=== PATIENT | female | born 1940 | race Caucasian/White ===

== ENCOUNTER 2024-05-29 18:51 | Emergency (ER) | payer SELFPAY ==
[2024-05-29 18:52] VITALS: BMI 28.9
[2024-05-29 18:54] VITALS: BP 158/66
[2024-05-29 20:55] VITALS: BP 145/68
[2024-05-29 21:00] VITALS: BP 127/65
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
[2024-05-29 22:22] VITALS: BP 137/65
== END 2024-05-29 22:33 | disposition home or self-care (01) ==
LOC: EMR 18:51
PROVIDERS: EMERGENCY PHYSICIAN Emergency Medicine; FAMILY PHYSICIAN Internal Medicine
DX: R07.81 Pleurodynia (principal); V43.62XA Car passenger injured in collision with other type car in traffic accident, initial encounter; R03.0 Elevated blood-pressure reading, without diagnosis of hypertension; F02.80 Dementia in other diseases classified elsewhere, unspecified severity, without behavioral disturbance, psychotic disturbance, mood disturbance, and anxiety; G30.9 Alzheimer's disease, unspecified
CPT/HCPCS: 99284; 70450; 71101; 72125

== ENCOUNTER 2025-04-10 08:43 | Inpatient (IN) | payer OTHER, SELFPAY ==
[2025-04-05 22:01] VITALS: BP 153/84
[2025-04-05 22:29] LABS: Hematocrit 36.6 % (37.0-47.0); Hemoglobin 11.9 g/dL (12.0-16.0); Mean Corp Hgb Conc. 32.5 g/dL (33.0-37.0); Mean Corpuscular Volume 88.6 fL (81.0-99.0); Nucleated Red Blood Cells % 0 %; Platelet Count 252 10^3/uL (130-400); Red Cell Dist. Width 13.4 % (11.5-14.5)
[2025-04-05 22:54] LABS: ALT (SGPT) 15 U/L (0-35); AST (SGOT) 23 U/L (14-36); Albumin 4.6 g/dl (3.5-5.0); Alkaline Phosphatase 162 U/L (38-126); Blood Urea Nitrogen 11 mg/dl (7-17); Calcium 8.8 mg/dl (8.4-10.2); Carbon Dioxide 24 mmol/L (22-30); Chloride 104 mmol/L (98-107); Glucose 125 mg/dl (70-99); Potassium 3.9 mmol/L (3.5-5.1); Sodium 137 mmol/L (135-145); Total Protein 7.9 g/dl (6.3-8.2); eGFR > 60.00
[2025-04-05 22:57] VITALS: BP 147/76
[2025-04-05 23:00] VITALS: BP 132/61
[2025-04-05] MEDS: DUONEB 9 ML INH (23:08)
[2025-04-05] MEDS: SOLU-MEDROL PF 125 MG IV (23:09)
[2025-04-05 23:45] LABS: COVID-19 Antigen Negative (Negative)
--- NOTE | 2025-04-05 23:57 | ED.GENMED ---
History of Present Illness
General
Chief Complaint: Cough
Time Seen by Provider: 04/05/25 22:55
History of Present Illness
History of Present Illness:
84-year-old female with history of hypertension, hyperlipidemia, dementia presenting to the emergency department for cough and shortness of breath. Patient arrives with daughter. Daughter notes that patient has been having coughing issues for
several months. She has been following with her doctor with unremarkable workup regarding imaging. In the past 2 weeks she has noticed a decline with increased coughing, difficulty breathing, poor appetite. Tonight the cough became severe and
patient was short of breath. Patient denies chest pain. Denies any smoking history. Denies any history of blood clots. Patient noted to be febrile on arrival, denies any known fever at home or known sick contacts. Cough is productive. Denies
additional acute medical complaints
Past History
Past History
ED Past Medical History: CAD and Other (Dementia)
ED Past Surgical History: Cardiac and Orthopedic
Social History
Tobacco: Non-smoker
Alcohol: None
Drug: None
Living: with family
Phy Exam
Physical Exam
Physical Exam:
General: Well-appearing, no clinical signs of dehydration, nontoxic and in no acute distress
HEENT: protecting airway
Neck: appears supple
CV: Normal heart rate, regular rhythm
Resp: Diminished air room bilaterally with wheezing diffusely. Mild increased work of breathing with active cough
Abd: no distension
Extremities: No deformities, no swelling
Neuro: alert, disoriented
: deferred
Rectal: deferred
Psych: Normal affect
Skin: Intact
Sepsis
Sepsis Screening
Sepsis Assessment: Sepsis Ruled Out
Sepsis Screen
Sepsis Screen: Sepsis Ruled Out
Date: 04/06/25
Time: 02:49
Course
Orders/Labs/Results
Orders:
Orders
04/05/25 22:04
Electrocardiogram (*1) Urgent
Reason for Study: Other
Other Reason for Exam: Possible Sepsis
IV Insert/Care/Rem.- Treatment PRN
Urinalysis Reflex To Culture Urgent
Date Specimen was Collected: 04/05/25
Time Specimen was Collected: 22:05
04/05/25 22:05
EKG- Treatment ONCE
04/05/25 22:20
Complete Blood Count/With Diff Urgent
Comprehensive Metabolic Panel Urgent
Lactic Acid Q4H
Comment: ON ICE, CANCEL 2ND ORDER IF FIRST LACTIC ACID LEVEL <2
Blood Culture Q20M
[facility] Source: Blood/Venous
Specimen Description:
Comment: Urgent from separate sites. If patient screens positive for possible sepsis
Blood Culture Q20M
[facility] Source: Blood/Venous
Specimen Description:
Comment: Urgent from separate sites. If patient screens positive for possible sepsis
04/05/25 23:03
Ipratropium/Albuterol Sulfate [Duoneb] 9 ml INH R NOW STA
MethylPREDNISolone PF [Solu-Medrol Pf] 125 mg IV NOW STA
04/05/25 23:16
COVID-19 Antigen Urgent
Source: Nasal Swab
Influenza A+B Rapid Molecular Urgent
[facility]IDA Source: Nasal Swab
Specimen Description:
04/06/25 00:05
CR Chest - 2 Views Urgent
Reason For Exam: cough/SOB
04/06/25 00:41
Albuterol Nebs [Ventolin Nebules] 2.5 mg INH R NOW STA
04/06/25 01:25
Admit/Transfer Patient As Directed
Co-Sign Provider:
Level of Care: Observation services
Assign to:: Medical/Surgical
Physician / Group: Ignacio
Diagnosis: Asthmatic Bronchitis
PRN Pain Medication Management As Directed
May give lesser potent ordered pain med per pt: Yes
preference::
Protocol:: Medication orders for pain may be administered in a
manner that supports deferring to patient preference
when the pt is:
- Requesting an ordered lesser potent pain medication.
Least to most potent pain medications are defined
as: acetaminophen < NSAID < tramadol < opioids
(morphine, oxycodone, hydromorphone).
- Requesting a lesser dose of the same medication IF
ORDERED.
- Requesting a less intrusive route of administration
if both routes are prescribed by the provider (PO <
IV).
04/06/25 01:26
Code Status As Directed
Resuscitation Status: Full Code
04/06/25 02:35
Acetaminophen [Tylenol] 650 mg PO Q4HPRN PRN
Albuterol Nebs [Ventolin Nebules] 2.5 mg INH R Q4HPRN PRN
04/06/25 02:35
Activity As Directed
Activity Level: Ambulate
With Assistance
I/O [Intake/ Output] As Directed
Frequency: Per unit guidelines
Vital Signs As Directed
Frequency: Per unit guidelines
Weight As Directed
Frequency: Daily
Chest PT [Rx Chest Pt] [RESP] Routine
Special Instructions: BID
Oxygen Therapy [O2 Therapy] [RESP] Routine
Titrate/Wean O2 to maintain O2 sat greater than (%): 94
PT Consult [Pt Eval And Treat] Routine
Activity Level: Ambulate
With Assistance
DX Deep Vein Thrombosis Video Routine
04/06/25 Breakfast
Regular
Basic Metabolic Panel IN AM
Complete Blood Count/No Diff IN AM
04/06/25 08:00
Aspirin Low Dose EC [Aspir Low (Enteric Coated)] 81 mg PO DAILY
Atorvastatin [Lipitor] 20 mg PO DAILY
Guaifenesin [Mucinex] 600 mg PO Q12
Heparin 5,000 units SC Q12
Ipratropium/Albuterol Sulfate [Duoneb] 3 ml INH R TID
Memantine HCl [Namenda] 10 mg PO BID
Metoprolol Xl [Toprol Xl] 25 mg PO DAILY
Prednisone [Deltasone] 40 mg PO DAILY
Sertraline HCl [Zoloft] 50 mg PO DAILY
04/06/25 22:00
Donepezil [Aricept] 5 mg PO HS
Abnormal Lab Results
04/05/25
22:20
RBC 4.13 L 10^6/uL
(4.20-5.40)
Hgb 11.9 L g/dL
(12.0-16.0)
Hct 36.6 L %
(37.0-47.0)
MCHC 32.5 L g/dL
(33.0-37.0)
Absolute Monos (auto) 0.7 H 10^3/uL
(0.1-0.6)
Lymphocytes % 16.0 L %
(20.5-51.1)
Glucose 125 H mg/dl
(70-99)
Alkaline Phosphatase 162 H U/L
(38-126)
04/05/25 22:20
04/05/25 22:20
Vital Signs
Initial and Last Documented VS:
Initial Vital Signs
Temp Pulse Resp BP Pulse Ox
100 F 86 25 153/84 94
04/05/25 22:01 04/05/25 22:01 04/05/25 22:01 04/05/25 22:01 04/05/25 22:01
Last Documented Vital Signs
Temp Pulse Resp BP Pulse Ox
100 F 90 21 106/53 98
04/05/25 22:01 04/06/25 00:15 04/06/25 00:15 04/06/25 01:14 04/06/25 00:28
MDM/Problems Addressed
MDM/Problems Addressed:
84-year-old female with history of hypertension, hyperlipidemia, dementia presenting for cough and shortness of breath. Vital signs significant for mild hypertension and fever.
On exam, patient in mild respiratory distress with increased work of breathing, diffuse expiratory wheezing. Patient also febrile. Concern for pneumonia or viral syndrome such as COVID or flu. Given diffuse wheezing, will start on DuoNebs and
steroids. Will plan for laboratory analysis and chest x-ray imaging.
00:45 - Chest x-ray without obvious sign of infiltrate. COVID and flu are negative. Slight increase in aeration of lungs after treatments, however remains rhonchorous with wheezing. Will air tank assembler additional treatment. Ultimately feel patient
warrants admission for concern of acute bronchitis with possible developing pneumonia. Patient and daughter in agreement with plan
*Pulse Oximetry
SaO2: 95
Oxygen Mode of Delivery: Room air
Patient hypoxic: no
*Critical Care Note
Total Time (30-74mins, 75-104mins- exclusive of procedures): Not Applicable
ED Attending Note
-
Portions of this chart may have been created with voice recognition software.� Occasional wrong word or��sound alike� substitutions may have occurred due to the inherent limitations of voice recognition software.
Discharge Plan
Departure
Patient Disposition: Admit
Date of Disposition: 04/06/25
Time of Disposition: 00:50
Presentation/result/management discussed w/ accepting MD/DO: Hospitalist
Patient with high blood pressure during this ER visit?: No
Condition: Fair
Discharge Problem:
Acute bronchitis
Interventions
Interventions:
*Risk Screen - Suicide Last Done: 04/05/25 22:01
*General Assessment Last Done: 04/05/25 22:01
*Neglect/Abuse Screening Last Done: 04/05/25 22:01
*ED- Fall Risk Assessment Last Done: 04/05/25 23:03
*ED COVID-19 Vaccine History Last Done: 04/05/25 23:03
*ED Influenza Vaccine History Last Done: 04/05/25 22:01
ED- Pulmonary Assessment Last Done: 04/05/25 23:38
[2025-04-06] VITALS (7 sets, daily range): BP systolic 106–127; BP diastolic 50–68; PULSE 83; O2SAT 95; BMI 27.2
[2025-04-06] MEDS: VENTOLIN NEBULES 2.5 MG INH ×2 (00:48→21:57)
--- NOTE | 2025-04-06 01:28 | HPS.HSE ---
Family Physician
-
Family Physician: Ector Carney
Chief Complaint
-
Cough / SOB
History of Present Illness
Patient is an 84y F with PMH significant for hypertension and dementia who presents to ED complaining of cough and SOB. History obtained from discussion with ED staff / review of record. Patient brought to ED for evaluation of cough and SOB.
Daughter stated that cough present x months - but much worse over the past few days. Today the patient had severe paroxysms of cough and appeared short of breath and was brought to the ED for further evaluation.
At the time of my examination patient is resting comfortably. She is pleasantly demented and unable to contribute overmuch to this history. Daughter is no longer present.
Medical History
Past Medical History
Past Medical History: Reports Other
Additional Past Medical History:
Hypertension
Senile Dementia
Past Surgical History: Reports Other
Additional Past Surgical History:
None Known
Social History
Tobacco: Non-smoker
Alcohol: None
Personal: Other (Retired ED RN)
Family History
Family History: Not pertinent
Allergies / Home Medications
Allergies reflects when Allergies were last updated in [facility].
Home Medications with original date entered in [facility]
Allergy/Medication List:
Allergies
Allergy/AdvReac Type Severity Reaction Status Date / Time
oseltamivir (From Tamiflu) Allergy Mild Rash Verified 04/05/25 23:01
Tetracyclines Allergy Unknown Unknown Verified 04/05/25 23:01
Home Medications
aspirin 81 mg capsule 81 mg PO DAILY 04/05/25
atorvastatin 20 mg tablet 20 mg PO DAILY 04/05/25
donepezil 5 mg tablet 5 mg PO HS 04/05/25
memantine 10 mg tablet 10 mg PO BID 04/05/25
metoprolol succinate 25 mg tablet,extended release 24 hr 25 mg PO DAILY 04/05/25
pantoprazole 20 mg tablet,delayed release 20 mg PO DAILY 04/05/25
sertraline 50 mg tablet 50 mg PO DAILY 04/05/25
Review of Systems
-
Unable to obtain full review of systems at this time due to: Dementia
History Source: Patient
A 12 point ROS was completed and negative except as noted: Yes
Constitutional: Reports Fatigue; Denies Fever or Chills
EENT: Denies Sore Throat
Respiratory: Reports Cough and Trouble Breathing
Cardiac: Denies Chest Pain or Palpitations
Abdomen/GI: Denies Abdominal Pain, Nausea, Vomiting or Diarrhea
: Denies Dysuria or Frequency
Musculoskeletal: Denies Joint Pain or Edema
Neurological: Denies Dizzy or Headache
Physical Exam
Vital Signs
Vital Signs
Temp Pulse Resp BP Pulse Ox
100 F 90 21 116/55 99
04/05/25 22:01 04/06/25 00:15 04/06/25 00:15 04/06/25 00:00 04/06/25 00:15
Physical Exam
General: Other (84y F in no acute distress.)
HEENT: Other (Dry MM. Neck supple.)
Respiratory: Other (Scattered coarse breath sounds with expiratory squeaks / wheezes throughout. )
Cardiac: S1/S2 and Regular Rhythm; No Murmur
GI: Soft, Non Tender, Non Distended and Normal Bowel Sounds
Musculoskeletal: No Clubbing, No Cyanosis and No Edema
Neuro: Awake and Alert; No Oriented
Laboratory Results
-
04/05/25 22:20
04/05/25 22:20
Laboratory Results
Lactic Acid Cancelled 04/06/25 02:15
Total Bilirubin 0.7 mg/dl (0.2-1.3) 04/05/25 22:20
AST 23 U/L (14-36) 04/05/25 22:20
ALT 15 U/L (0-35) 04/05/25 22:20
Alkaline Phosphatase 162 U/L (38-126) H 04/05/25 22:20
Impression/Plan
-
A/P: Patient is an 84y F with PMH significant for hypertension and dementia who presents to ED for evaluation of cough and SOB.
Asthmatic Bronchitis
- Observe overnight for further evaluation and treatment.
- Cough / dyspnea at home with abnormal breath sounds on exam.
- Other work-up is unimpressive with normal CXR, temperature, WBC, oxygenation, etc.
- COVID / influenza negative in the ED.
- Observe off of abx.
- Mucolytics, nebs, PO steroids with rapid taper.
- Follow for clinical improvement.
Benign Hypertension
- Stable. Continue metoprolol.
Senile Dementia
Depression
- Stable. Continue outpatient med regimen without changes.
DVT Prophylaxis: Subcut Heparin
Code Status: Full
--- NOTE | 2025-04-06 05:06 | PTCARENOTE ---
Patient received from ED via stretcher and was pulled to bed by staff. She was oriented to room and surroundings but has hx dementia. Bed alarm in place. She denies CP, SOB. Coarse breath sounds throughout with fine anterior wheezes Sat 94% on
room air. Ax2 to BSC. Specimen to lab for UA. See nursing assessment for further physical findings.
[2025-04-06 05:47] LABS: Urine Character Clear (Clear)
[2025-04-06 06:00] LABS: Urine Red Blood Cell 0-2 /HPF (0-2); Urine Squamous Cell 0-2 /LPF (Few); Urine White Cell 0-2 /HPF (0-5)
[2025-04-06] MEDS: DUONEB 3 ML INH (07:21)
--- NOTE | 2025-04-06 08:16 | W.PN.HOSP.TC ---
Today's Communication/Plan
-
see A/P
Assessment / Plan
Assessment / Plan
HPI: 84 yo F with PMH significant for hypertension and dementia who presented to ED complaining of cough and SOB.
History obtained from discussion with ED staff / review of record. Patient brought to ED for evaluation of cough and SOB. Daughter stated that cough present x months - but much worse over the past few days. On DOA, the patient had severe paroxysms
of cough and appeared short of breath and was brought to the ED for further evaluation.
Patient was resting comfortably at the time of exam. She is pleasantly demented and unable to contribute overmuch to this history.
Daughter was no longer present.
A/P:
# Suspect mild acute viral URI vs Asthmatic Bronchitis
Cough / dyspnea at home with abnormal breath sounds on exam.
Pulse Ox > 90% on RA, VSS
COVID/Flu negative
Follow CXR formal report, but appears normal
Check procal, pro-BNP for completeness sake.
Observe off of abx for now
Mucolytics, nebs, PO prednisone 40 mg x5 days
Add Cepacol today for sore throat (her main complaint)
Follow for clinical improvement.
# Benign Hypertension, Stable.
Continue metoprolol.
# Senile Dementia
# Depression
Stable. Continue outpatient med regimen without changes.
DVT Prophylaxis: Lovenox SQ
Code Status: Full
PT eval
DW RN
updated daughter on the phone
Anticipated Discharge: 24 - 48 hours
Subjective/Interval History
-
Date of Service: April 06, 2025
Objective Data
-
Labs:
Laboratory Results
04/05/25 04/06/25
22:20 07:55
WBC 8.2 Pending
Hgb 11.9 L Pending
Hct 36.6 L Pending
Plt Count 252 Pending
Sodium 137 Pending
Potassium 3.9 Pending
Chloride 104 Pending
Carbon Dioxide 24 Pending
BUN 11 Pending
Creatinine 0.9 Pending
Glucose 125 H Pending
Calcium 8.8 Pending
Total Bilirubin 0.7
AST 23
ALT 15
Alkaline Phosphatase 162 H
Vital Signs:
Vital Signs
Temp Pulse Resp BP Pulse Ox
36.9 C 78 16 127/68 94
04/06/25 02:49 04/06/25 07:26 04/06/25 07:26 04/06/25 02:49 04/06/25 07:26
I&O
04/05/25 04/06/25 04/07/25
06:59 06:59 06:59
Output Total 1100 / 1100
Balance -1100 / -1100
Review of Systems
-
History Source: Patient
EENT: Reports Other (sore throat)
Respiratory: Reports Cough (mild and intermittent)
Physical Exam
-
General: Well Developed, Well Nourished, No Apparent Distress, Comfortable and Conversant; Negative Respiratory Distress
HEENT: Normocephalic, Atraumatic, Nose Appears Normal and Ears Appear Normal; Negative Oxygen
Respiratory: Clear to Auscultation and Non Labored Respirations; Negative Wheezes, Crackles or Accessory Resp Muscle Use
Cardiac: Regular Rhythm and S1/S2
GI: Soft, Nontender, Nondistended and Normal Bowel Sounds
Skin: Warm and Dry
Neuro: Awake and Alert
Psych: Calm
Data Reviewed
-
Labs: Labs Reviewed by me
[2025-04-06 08:37] LABS: Hematocrit 32.0 % (37.0-47.0); Hemoglobin 10.7 g/dL (12.0-16.0); Mean Corp Hgb Conc. 33.4 g/dL (33.0-37.0); Mean Corpuscular Volume 87.4 fL (81.0-99.0); Platelet Count 200 10^3/uL (130-400); Red Cell Dist. Width 13.3 % (11.5-14.5)
[2025-04-06 09:08] LABS: Blood Urea Nitrogen 10 mg/dl (7-17); Calcium 9.1 mg/dl (8.4-10.2); Carbon Dioxide 20 mmol/L (22-30); Chloride 107 mmol/L (98-107); Estimated Creatinine Clearance 55 ml/min; Glucose 190 mg/dl (70-99); Potassium 3.7 mmol/L (3.5-5.1); Sodium 139 mmol/L (135-145); eGFR > 60.00
[2025-04-06] MEDS: ANESTHETIC LOZENGE 1 LOZENGE PO ×3 (09:30→21:18)
[2025-04-06] MEDS: ASPIR LOW (ENTERIC COATED) 81 MG PO (09:30)
[2025-04-06] MEDS: MUCINEX 600 MG PO ×2 (09:30→20:18)
[2025-04-06] MEDS: ZOLOFT 50 MG PO (09:30)
[2025-04-06] MEDS: TOPROL XL 25 MG PO (09:31)
[2025-04-06] MEDS: LIPITOR 20 MG PO (09:31)
[2025-04-06] MEDS: NAMENDA 10 MG PO ×2 (09:31→20:18)
[2025-04-06] MEDS: DELTASONE 40 MG PO (09:31)
[2025-04-06 09:46] LABS: Procalcitonin < 0.05 ng/ml (0.0-0.25)
--- NOTE | 2025-04-06 15:39 | CM ---
Initial assessment completed w/ daughter, Tanna Baker, via phone; Daughter reported that patient has Alzheimer Disease
Pharmacy verified: [facility] [address] [facility]
Patient lives with daughter and 25 yr old granddaughter; one floor home; 3 steps to enter; bath has tub w/ shower, grab bar, and seat
Patient moved in with her daughter May 2024 after living in Assisted Living[facility] facility; both daughter and granddaughter work daytime babysitter and leave patient alone during the dayand are the primary caregivers for patient;
Daughter is seeking help with personal care in the home; Consumer Services Advisor explained that services she was seeking are not covered by Medicare
PLOF: Daughter reported that patient has refused personal care for several months; refuses to bathe; toilets self; incontinent times 1; dresses and feeds self; Ambulates w/ rolling walker sometimes
Daughter reported that patient complains of back and hip pain. She is visiting tomorrow and was advised to ask to speak with Attending when she is here
SNF stay @ [facility] 18 months ago after Fall and hip fracture
Explained to daughter that PT recommends SNF; daughter is agreeable; daughter is also interested in Retirement Care; SNF site options identified; preferences are [facility]; referrals sent via [facility]
Plan: Discharge to SNF pending bed availability when medically stable and authorization approval
[2025-04-06] MEDS: LOVENOX 40 MG SC (17:21)
[2025-04-06] MEDS: ARICEPT 5 MG PO (21:16)
[2025-04-06] MEDS: TESSALON PERLES 200 MG PO (23:00)
[2025-04-06] MEDS: ROBITUSSIN DM 10 ML PO (23:27)
[2025-04-07] MEDS: BENADRYL 25 MG PO (00:40)
[2025-04-07] MEDS: ROBITUSSIN DM 10 ML PO ×2 (03:37→16:56)
[2025-04-07 06:00] VITALS: BMI 26.7
[2025-04-07 06:55] LABS: Hematocrit 32.1 % (37.0-47.0); Hemoglobin 10.7 g/dL (12.0-16.0); Mean Corp Hgb Conc. 33.3 g/dL (33.0-37.0); Mean Corpuscular Volume 87.2 fL (81.0-99.0); Platelet Count 257 10^3/uL (130-400); Red Cell Dist. Width 13.8 % (11.5-14.5)
[2025-04-07 07:00] VITALS: BP 141/73
[2025-04-07 07:04] LABS: Blood Urea Nitrogen 16 mg/dl (7-17); Calcium 9.3 mg/dl (8.4-10.2); Carbon Dioxide 25 mmol/L (22-30); Chloride 108 mmol/L (98-107); Estimated Creatinine Clearance 54 ml/min; Glucose 121 mg/dl (70-99); Magnesium 2.2 mg/dl (1.6-2.3); Potassium 3.9 mmol/L (3.5-5.1); Sodium 142 mmol/L (135-145); eGFR > 60.00
[2025-04-07] MEDS: ASPIR LOW (ENTERIC COATED) 81 MG PO (09:17)
[2025-04-07] MEDS: NAMENDA 10 MG PO ×2 (09:17→19:45)
[2025-04-07] MEDS: ZOLOFT 50 MG PO (09:17)
[2025-04-07] MEDS: MUCINEX 600 MG PO ×2 (09:17→19:45)
[2025-04-07] MEDS: DELTASONE 40 MG PO (09:17)
[2025-04-07] MEDS: LIPITOR 20 MG PO (09:17)
[2025-04-07] MEDS: TOPROL XL 25 MG PO (09:17)
--- NOTE | 2025-04-07 13:13 | W.PN.HOSP.TC ---
Today's Communication/Plan
-
Continue current plan
Assessment / Plan
Assessment / Plan
84 yo F with PMH significant for hypertension and dementia who presented to ED complaining of cough and SOB.
History was obtained from discussion with ED staff / review of record. Patient brought to ED for evaluation of cough and SOB. Daughter stated that cough present x months - but much worse over the past few days. On DOA, the patient had severe
paroxysms of cough and appeared short of breath and was brought to the ED for further evaluation. Patient was resting comfortably at the time of exam. She is pleasantly demented and unable to contribute overmuch to this history.
A/P:
1. Suspect mild acute viral URI vs Asthmatic Bronchitis
Cough / dyspnea at home with abnormal breath sounds on exam.
Pulse Ox > 90% on RA, VSS
COVID/Flu negative
Followed CXR formal report
Lungs: No convincing focal infiltrates. No significant pleural effusions. No visualized pneumothorax.
Heart: Cardiac and mediastinal contours are unremarkable. No overt pulmonary vascular congestion.
Osseous structures: No acute abnormalities.
Checked procal & pro-BNP for completeness sake - both neg
Observe off of abx for now
Mucolytics, nebs, PO prednisone 40 mg x5 days
High WBC rise likely from steroids
Added Cepacol for sore throat (her main complaint)
Follow for clinical improvement
If OK within next 24-48 hours, then safe for d/c
Likely Wednesday
Plan d/w daughter, who agrees with plan
2. Benign Hypertension, Stable.
Continue metoprolol.
3. Senile Dementia - Chronic
4. Depression - Stable. Continue outpatient med regimen without changes.
DVT Prophylaxis: Lovenox SQ
Code Status: Full
PT eval
updated daughter on the phone
Anticipated Discharge: 24 - 48 hours
Subjective/Interval History
-
Date of Service: April 07, 2025
Some improvement. Remains confused.
Objective Data
-
Labs:
Laboratory Results
04/07/25
05:33
WBC 17.5 H
Hgb 10.7 L
Hct 32.1 L
Plt Count 257 D
Sodium 142
Potassium 3.9
Chloride 108 H
Carbon Dioxide 25
BUN 16
Creatinine 0.7
Glucose 121 H
Calcium 9.3
Vital Signs:
Vital Signs
Temp Pulse Resp BP Pulse Ox
97.5 F 66 16 141/73 92
04/07/25 07:00 04/07/25 07:00 04/07/25 07:00 04/07/25 07:00 04/07/25 07:00
I&O
04/06/25 04/07/25 04/08/25
06:59 06:59 06:59
Intake Total 480 / 480
Output Total 1100 / 1100
Balance -1100 / -1100 480 / 480
Review of Systems
-
Unable to obtain full review of systems at this time due to: Dementia
History Source: Patient
Physical Exam
-
General: Well Developed, Well Nourished, No Apparent Distress and Comfortable
HEENT: Normocephalic, Atraumatic, Moist Mucous Membranes, Nose Appears Normal and Ears Appear Normal
Respiratory: Wheezes
Cardiac: Regular Rhythm and S1/S2
GI: Soft, Nontender and Nondistended
Musculoskeletal: No Clubbing, No Cyanosis and No Edema
Skin: Warm and Dry
Neuro: Awake and Alert; Negative Oriented or AO x 3
Psych: Calm and Confused
Data Reviewed
-
Old Records: Requested
[2025-04-07 15:00] VITALS: BP 127/68
[2025-04-07] MEDS: LOVENOX 40 MG SC (16:24)
[2025-04-07] MEDS: ANESTHETIC LOZENGE 1 LOZENGE PO (16:56)
[2025-04-07] MEDS: TESSALON PERLES 200 MG PO (16:56)
[2025-04-07] MEDS: VENTOLIN NEBULES 2.5 MG INH ×2 (17:06→21:08)
--- NOTE | 2025-04-07 17:15 | PTCARENOTE ---
Patient with frequent cough and wheezing. Coughing 'fits' reported by family and kettle hand RN, CXR done last night and on admission due to frequent harsh cough. Respiratory notified of cough and SOB, requesting neb tx for patient. Respiratory
therapist concerned for aspiration. Hospitalist notified and CXR ordered. Pulse ox 94% on RA. Tessalon pearles, and cough syrup administered. See SEP.
[2025-04-07] MEDS: MELATONIN 5 MG PO (19:44)
[2025-04-07] MEDS: TYLENOL 650 MG PO (19:45)
[2025-04-07] MEDS: ARICEPT 5 MG PO (19:45)
[2025-04-07 23:12] VITALS: BP 118/53
[2025-04-08 06:00] VITALS: BMI 26.9
[2025-04-08] MEDS: ROBITUSSIN DM 10 ML PO ×3 (06:39→19:39)
[2025-04-08] MEDS: ANESTHETIC LOZENGE 1 LOZENGE PO ×3 (06:39→19:40)
[2025-04-08] MEDS: TYLENOL 650 MG PO ×3 (06:39→19:39)
[2025-04-08] MEDS: TESSALON PERLES 200 MG PO ×3 (06:39→19:39)
[2025-04-08 06:57] LABS: Hematocrit 32.2 % (37.0-47.0); Hemoglobin 10.6 g/dL (12.0-16.0); Mean Corp Hgb Conc. 32.9 g/dL (33.0-37.0); Mean Corpuscular Volume 90.2 fL (81.0-99.0); Platelet Count 255 10^3/uL (130-400); Red Cell Dist. Width 13.9 % (11.5-14.5)
[2025-04-08 07:00] VITALS: BP 119/61
[2025-04-08 07:36] LABS: Blood Urea Nitrogen 24 mg/dl (7-17); Calcium 8.8 mg/dl (8.4-10.2); Carbon Dioxide 25 mmol/L (22-30); Chloride 108 mmol/L (98-107); Estimated Creatinine Clearance 55 ml/min; Glucose 94 mg/dl (70-99); Potassium 3.8 mmol/L (3.5-5.1); Sodium 141 mmol/L (135-145); eGFR > 60.00
[2025-04-08] MEDS: LIPITOR 20 MG PO (08:25)
[2025-04-08] MEDS: MUCINEX 600 MG PO ×2 (08:25→19:39)
[2025-04-08] MEDS: DELTASONE 40 MG PO (08:25)
[2025-04-08] MEDS: ZOLOFT 50 MG PO (08:25)
[2025-04-08] MEDS: ASPIR LOW (ENTERIC COATED) 81 MG PO (08:25)
[2025-04-08] MEDS: NAMENDA 10 MG PO ×2 (08:25→19:40)
[2025-04-08] MEDS: TOPROL XL 25 MG PO (08:25)
--- NOTE | 2025-04-08 11:35 | CM ---
Met with Pt, son and dtr. No change in D/C plan. #1 preference is [facility] [place]. Son was also saying the family is interested in LTC onc skilled rehab is completed
Plan: D/C to SNF.
--- NOTE | 2025-04-08 13:01 | W.PN.HOSP.TC ---
Today's Communication/Plan
-
Repeat CXR. Swallow eval tomorrow.
Assessment / Plan
Assessment / Plan
84 yo F with PMH significant for hypertension and dementia who presented to ED complaining of cough and SOB.
History was obtained from discussion with ED staff / review of record. Patient brought to ED for evaluation of cough and SOB. Daughter stated that cough present x months - but much worse over the past few days. On DOA, the patient had severe
paroxysms of cough and appeared short of breath and was brought to the ED for further evaluation. Patient was resting comfortably at the time of exam. She is pleasantly demented and unable to contribute overmuch to this history.
A/P:
1. Suspect mild acute viral URI vs Asthmatic Bronchitis vs aspiration
Cough / dyspnea at home with abnormal breath sounds on exam.
Pulse Ox > 90% on RA, VSS
COVID/Flu negative
Followed CXR formal report
Lungs: No convincing focal infiltrates. No significant pleural effusions. No visualized pneumothorax.
Heart: Cardiac and mediastinal contours are unremarkable. No overt pulmonary vascular congestion.
Osseous structures: No acute abnormalities.
Checked procal & pro-BNP for completeness sake - both neg
Observe off of abx for now
Mucolytics, nebs, PO prednisone 40 mg x5 days
High WBC rise likely from steroids
Added Cepacol for sore throat (her main complaint)
Follow for clinical improvement
If OK within next 24-48 hours, then safe for d/c
Likely Wednesday
Given that she often coughs more after eating
Check swallow study in am
Recheck CXR today
2. Benign Hypertension, Stable.
Continue metoprolol.
3. Senile Dementia - Chronic
4. Depression - Stable. Continue outpatient med regimen without changes.
DVT Prophylaxis: Lovenox SQ
Code Status: Full
PT eval
updated daughter on the phone
Anticipated Discharge: 24 - 48 hours
Subjective/Interval History
-
Date of Service: April 08, 2025
coughs after she eats
Objective Data
-
Labs:
Laboratory Results
04/08/25
06:08
WBC 13.6 H
Hgb 10.6 L
Hct 32.2 L
Plt Count 255
Sodium 141
Potassium 3.8
Chloride 108 H
Carbon Dioxide 25
BUN 24 H
Creatinine 0.7
Glucose 94
Calcium 8.8
Vital Signs:
Vital Signs
Temp Pulse Resp BP Pulse Ox
97.7 F 64 18 119/61 98
04/08/25 07:00 04/08/25 08:25 04/08/25 07:00 04/08/25 08:25 04/08/25 08:25
I&O
04/07/25 04/08/25 04/09/25
06:59 06:59 06:59
Intake Total 480 / 480 720 / 720
Balance 480 / 480 720 / 720
Review of Systems
-
Unable to obtain full review of systems at this time due to: Dementia
Physical Exam
-
General: Well Developed, Well Nourished, No Apparent Distress, Comfortable and Conversant
HEENT: Normocephalic, Atraumatic, Moist Mucous Membranes, Nose Appears Normal and Ears Appear Normal
Respiratory: Crackles
Cardiac: Regular Rhythm and S1/S2
GI: Soft, Nontender and Nondistended
Musculoskeletal: No Clubbing and No Cyanosis
Skin: Warm and Dry
Neuro: Awake and Alert
Psych: Calm and Confused
Data Reviewed
-
Labs: Labs Reviewed by me
[2025-04-08 13:02] VITALS: BP 117/55; PULSE 69; O2SAT 93
[2025-04-08 15:00] VITALS: BP 122/60
[2025-04-08] MEDS: LOVENOX 40 MG SC (16:54)
[2025-04-08] MEDS: VENTOLIN NEBULES 2.5 MG INH (19:33)
[2025-04-08] MEDS: ARICEPT 5 MG PO (19:41)
[2025-04-08 23:38] VITALS: BP 146/69
[2025-04-09] MEDS: ANESTHETIC LOZENGE 1 LOZENGE PO ×3 (00:01→18:41)
[2025-04-09] MEDS: VALIUM INJECTION 2 MG IV (00:01)
[2025-04-09] MEDS: VENTOLIN NEBULES 2.5 MG INH ×5 (00:16→19:48)
[2025-04-09 06:00] VITALS: BMI 26.8
[2025-04-09 07:00] VITALS: BP 123/77
[2025-04-09 07:22] LABS: Hematocrit 31.5 % (37.0-47.0); Hemoglobin 10.1 g/dL (12.0-16.0); Mean Corp Hgb Conc. 32.1 g/dL (33.0-37.0); Mean Corpuscular Volume 90.3 fL (81.0-99.0); Platelet Count 211 10^3/uL (130-400); Red Cell Dist. Width 14.1 % (11.5-14.5)
[2025-04-09 07:33] LABS: Blood Urea Nitrogen 15 mg/dl (7-17); Calcium 8.8 mg/dl (8.4-10.2); Carbon Dioxide 28 mmol/L (22-30); Chloride 109 mmol/L (98-107); Estimated Creatinine Clearance 48 ml/min; Glucose 80 mg/dl (70-99); Potassium 3.3 mmol/L (3.5-5.1); Sodium 141 mmol/L (135-145); eGFR > 60.00
[2025-04-09] MEDS: ASPIR LOW (ENTERIC COATED) 81 MG PO (09:10)
[2025-04-09] MEDS: DELTASONE 40 MG PO (09:10)
[2025-04-09] MEDS: NAMENDA 10 MG PO ×2 (09:11→19:48)
[2025-04-09] MEDS: LIPITOR 20 MG PO (09:11)
[2025-04-09] MEDS: MUCINEX 600 MG PO (09:11)
[2025-04-09] MEDS: ZOLOFT 50 MG PO (09:12)
[2025-04-09] MEDS: TESSALON PERLES 200 MG PO ×3 (09:12→19:46)
[2025-04-09] MEDS: TOPROL XL 25 MG PO (09:13)
[2025-04-09] MEDS: TYLENOL 650 MG PO ×3 (09:41→19:47)
[2025-04-09] MEDS: KCL 20 MEQ PO (09:42)
[2025-04-09] MEDS: ROBITUSSIN DM 10 ML PO ×2 (09:59)
[2025-04-09] MEDS: VENTOLIN NEBULES INH (10:05)
[2025-04-09 11:31] LABS: Procalcitonin < 0.05 ng/ml (0.0-0.25)
[2025-04-09] MEDS: PROTONIX 40 MG PO (12:46)
[2025-04-09] MEDS: DECADRON 4 MG IV ×2 (12:46→19:48)
[2025-04-09] MEDS: PULMICORT 0.5 MG INH ×2 (12:50→19:48)
--- NOTE | 2025-04-09 13:17 | PTOTSP ---
Speech Therapy Evaluation:
Patient presents with functional oral and pharyngeal stage of swallowing. No confirmed penetration or aspiration across the study. No significant pharyngeal residue. Please see patient care note for full details of swallowing physiology.
Recommend:
1. Regular solids and thin liquids
2. Medications as tolerated
3. Aspiration and reflux precautions
4. No further skilled intervention warranted, BAKERY DELIVERER to s/o
--- NOTE | 2025-04-09 13:24 | W.PN.HOSP.TC ---
Today's Communication/Plan
-
Monitor vital signs see plan
Switch prednisone to Decadron
Start standing albuterol, add Pulmicort
Pro-Jorge
Discussed with daughter
Speech
Assessment / Plan
Assessment / Plan
84 yo F with PMH significant for hypertension and dementia who presented to ED complaining of cough and SOB.
History was obtained from discussion with ED staff / review of record. Patient brought to ED for evaluation of cough and SOB. Daughter stated that cough present x months - but much worse over the past few days. On DOA, the patient had severe
paroxysms of cough and appeared short of breath and was brought to the ED for further evaluation. Patient was resting comfortably at the time of exam. She is pleasantly demented and unable to contribute overmuch to this history.
A/P:
Suspect acute viral URI vs Asthmatic Bronchitis vs aspiration
Acute hypoxic respiratory insufficiency likely secondary to above, wean oxygen as tolerated
COVID/Flu negative
Chest x-ray now with mild increase in subpleural opacity in the basilar lower lobes. Likely secondary to atelectasis. Pro-Jorge negative. Monitor off antibiotic
Has profound wheezing on exam, switch prednisone to Decadron. Add standing albuterol. Add Pulmicort.
speech eval; ok for regular
Observe off of abx for now
High WBC rise likely from steroids
Added Cepacol for sore throat (her main complaint)
Follow for clinical improvement
Benign Hypertension, Stable.
Continue metoprolol.
GERD
Senile Dementia - Chronic
Depression - Stable. Continue outpatient med regimen without changes.
DVT Prophylaxis: Lovenox SQ
Code Status: Full
General: Well Developed, Well Nourished, No Apparent Distress, Comfortable and Conversant
HEENT: Normocephalic, Atraumatic, Moist Mucous Membranes, Nose Appears Normal and Ears Appear Normal
Respiratory:+wheezing
Cardiac: Regular Rhythm and S1/S2
GI: Soft, Nontender and Nondistended
Musculoskeletal: no edema
Neuro: Awake and Alert
Psych: Calm
I spent a total of 52 minutes with the patient or on the floor. More than 50% of this time involved counseling and coordination of care.
Anticipated Discharge: 24 - 48 hours
Subjective/Interval History
-
Date of Service: April 09, 2025
Reports worsening cough and wheezing
Objective Data
-
Labs:
Laboratory Results
04/09/25
06:49
WBC 9.3
Hgb 10.1 L
Hct 31.5 L
Plt Count 211
Sodium 141
Potassium 3.3 L
Chloride 109 H
Carbon Dioxide 28
BUN 15
Creatinine 0.8
Glucose 80
Calcium 8.8
Vital Signs:
Vital Signs
Temp Pulse Resp BP Pulse Ox
97.8 F 70 18 142/75 93
04/09/25 07:00 04/09/25 12:54 04/09/25 12:54 04/09/25 09:13 04/09/25 12:54
I&O
04/08/25 04/09/25 04/10/25
06:59 06:59 06:59
Intake Total 720 / 720 600 / 600
Balance 720 / 720 600 / 600
[2025-04-09 15:00] VITALS: BP 118/60
--- NOTE | 2025-04-09 16:12 | CM ---
[facility] accepted patient.
Pt and dgt aware.
NPI provided.
Remains on 3 liter oxygen Pox 91%.
Will need auth with [employer]
PLAN To [facility] after auth
[2025-04-09] MEDS: LOVENOX 40 MG SC (17:18)
[2025-04-09] MEDS: MUCINEX 1200 MG PO (19:47)
[2025-04-09] MEDS: ARICEPT 5 MG PO (21:08)
[2025-04-09 23:25] VITALS: BP 126/53
[2025-04-10] MEDS: DECADRON 4 MG IV (04:09)
[2025-04-10 06:00] VITALS: BMI 26.6
[2025-04-10] MEDS: PULMICORT 0.5 MG INH ×2 (07:22→19:18)
[2025-04-10] MEDS: VENTOLIN NEBULES 2.5 MG INH ×4 (07:22→19:18)
[2025-04-10 07:30] VITALS: BP 128/65
[2025-04-10 08:08] LABS: Hematocrit 34.8 % (37.0-47.0); Hemoglobin 11.5 g/dL (12.0-16.0); Mean Corp Hgb Conc. 33.0 g/dL (33.0-37.0); Mean Corpuscular Volume 90.2 fL (81.0-99.0); Nucleated Red Blood Cells % 0 %; Platelet Count 239 10^3/uL (130-400); Red Cell Dist. Width 13.9 % (11.5-14.5)
[2025-04-10 08:33] LABS: Blood Urea Nitrogen 16 mg/dl (7-17); Calcium 8.9 mg/dl (8.4-10.2); Carbon Dioxide 28 mmol/L (22-30); Chloride 108 mmol/L (98-107); Estimated Creatinine Clearance 64 ml/min; Glucose 144 mg/dl (70-99); Potassium 4.3 mmol/L (3.5-5.1); Sodium 142 mmol/L (135-145); eGFR > 60.00
[2025-04-10] MEDS: TOPROL XL 25 MG PO (10:01)
[2025-04-10] MEDS: NAMENDA 10 MG PO ×2 (10:01→20:53)
[2025-04-10] MEDS: PROTONIX 40 MG PO (10:01)
[2025-04-10] MEDS: MUCINEX 1200 MG PO ×2 (10:01→20:53)
[2025-04-10] MEDS: ASPIR LOW (ENTERIC COATED) 81 MG PO (10:02)
[2025-04-10] MEDS: ZOLOFT 50 MG PO (10:02)
[2025-04-10] MEDS: LIPITOR 20 MG PO (10:02)
[2025-04-10] MEDS: TYLENOL 650 MG PO (10:12)
--- NOTE | 2025-04-10 12:40 | W.PN.HOSP.TC ---
Addendum entered and electronically signed by Sergo Joyce MD 04/10/25 13:16:
Correction:
Acute Bonchitis likely 2/2 acute viral URI
Original Note:
Today's Communication/Plan
-
Monitor vitals
See plan
Continue with IV Decadron, decrease dose today
Monitor mental status closely
Wean oxygen as tolerated
Discussed with daughter
Hopeful discharge soon
Assessment / Plan
Assessment / Plan
84 yo F with PMH significant for hypertension and dementia who presented to ED complaining of cough and SOB.
History was obtained from discussion with ED staff / review of record. Patient brought to ED for evaluation of cough and SOB. Daughter stated that cough present x months - but much worse over the past few days. On DOA, the patient had severe
paroxysms of cough and appeared short of breath and was brought to the ED for further evaluation. Patient was resting comfortably at the time of exam. She is pleasantly demented and unable to contribute overmuch to this history.
A/P:
Suspect acute viral URI vs Asthmatic Bronchitis vs aspiration
Acute hypoxic respiratory insufficiency likely secondary to above, wean oxygen as tolerated
COVID/Flu negative
Chest x-ray now with mild increase in subpleural opacity in the basilar lower lobes. Likely secondary to atelectasis. Pro-Jorge negative. Monitor off antibiotic
Has profound wheezing on exam, switched prednisone to Decadron. dec decadron, Added standing albuterol. Added Pulmicort.
speech eval; ok for regular
Observe off of abx for now
High WBC rise likely from steroids
Added Cepacol for sore throat (her main complaint)
Follow for clinical improvement
Benign Hypertension, Stable.
Continue metoprolol.
GERD
Senile Dementia - Chronic
Depression - Stable. Continue outpatient med regimen without changes.
Monitor vital status on steroids
DVT Prophylaxis: Lovenox SQ
Code Status: Full
General: Well Developed, Well Nourished, No Apparent Distress, Comfortable and Conversant
HEENT: Normocephalic, Atraumatic, Moist Mucous Membranes, Nose Appears Normal and Ears Appear Normal
Respiratory:+wheezing
Cardiac: Regular Rhythm and S1/S2
GI: Soft, Nontender and Nondistended
Musculoskeletal: no edema
Neuro: Awake and Alert
Psych: Calm
I spent a total of 51 minutes with the patient or on the floor. More than 50% of this time involved counseling and coordination of care.
Anticipated Discharge: 24 - 48 hours
Subjective/Interval History
-
Date of Service: April 10, 2025
denies pain
Objective Data
-
Labs:
Laboratory Results
04/10/25
07:35
WBC 8.8
Hgb 11.5 L
Hct 34.8 L
Plt Count 239
Sodium 142
Potassium 4.3 D
Chloride 108 H
Carbon Dioxide 28
BUN 16
Creatinine 0.6
Glucose 144 H
Calcium 8.9
Vital Signs:
Vital Signs
Temp Pulse Resp BP Pulse Ox
97.6 F 74 15 128/65 97
04/10/25 07:30 04/10/25 11:08 04/10/25 11:08 04/10/25 10:01 04/10/25 11:08
I&O
04/09/25 04/10/25 04/11/25
06:59 06:59 06:59
Intake Total 600 / 600 900 / 900
Output Total 150 / 150
Balance 600 / 600 750 / 750
--- NOTE | 2025-04-10 12:43 | PN.CDI ---
CDI
- -
CDI:
Physician Documentation Request
Admit Date: 04/10/25 08:43
Dear Doctor Isiah,
Patient is admitted with Suspect acute viral URI vs Asthmatic Bronchitis vs aspiration
Please provide further specificity regarding the documented asthmatic bronchitis
asthmatic bronchitis with acute exacerbation
asthmatic bronchitis with status asthmaticus
Asthmatic bronchitis uncomplicated
Other
Use of terms such as suspected, likely, concern for, or probable (associated with a specific diagnosis that is being evaluated, monitored, or treated as if it exists) are acceptable and can be coded in the inpatient setting, when documented at the
time of discharge.
Thank you,
Vilma Delgadillo RN, BSN
CDI Specialist
tiger text
Please use your independent medical judgment in providing your response.
[2025-04-10] MEDS: DECADRON IV (13:02)
[2025-04-10] MEDS: DECADRON 2 MG IV ×2 (14:21→20:53)
--- NOTE | 2025-04-10 15:33 | CM ---
MD indicated pt not ready for discharge yet.
[facility] at [facility] said accepted patient.Will need auth with [employer]
Patient confused.Spoke with dgt at bedside .
Pt needs IV steroids.
Attempt to wean off oxygen .
Remains on 1 liter oxygen Pox 94%.
[facility]
report [phone]
fax [phone]
PLAN To [facility] after auth
[2025-04-10] MEDS: TESSALON PERLES 200 MG PO (15:36)
[2025-04-10 16:10] VITALS: BP 108/60
[2025-04-10] MEDS: LOVENOX 40 MG SC (16:44)
[2025-04-10] MEDS: ARICEPT 5 MG PO (20:53)
[2025-04-10] MEDS: MELATONIN 3 MG PO (21:02)
[2025-04-10 23:17] VITALS: BP 118/51
[2025-04-11] MEDS: DECADRON 2 MG IV ×3 (05:37→20:35)
[2025-04-11 06:00] VITALS: BMI 26.6
[2025-04-11] MEDS: PULMICORT 0.5 MG INH ×2 (07:22→19:19)
[2025-04-11] MEDS: VENTOLIN NEBULES 2.5 MG INH ×4 (07:22→19:19)
[2025-04-11 07:53] VITALS: BP 145/71
[2025-04-11] MEDS: ZOLOFT 50 MG PO (08:59)
[2025-04-11] MEDS: TOPROL XL 25 MG PO (08:59)
[2025-04-11] MEDS: FLUSH (NSS) 1 FLUSH IV ×2 (08:59→14:26)
[2025-04-11] MEDS: PROTONIX 40 MG PO (08:59)
[2025-04-11] MEDS: NAMENDA 10 MG PO ×2 (08:59→20:35)
[2025-04-11] MEDS: MUCINEX 1200 MG PO ×2 (08:59→20:35)
[2025-04-11] MEDS: ASPIR LOW (ENTERIC COATED) 81 MG PO (08:59)
[2025-04-11] MEDS: LIPITOR 20 MG PO (08:59)
[2025-04-11 09:37] LABS: Hematocrit 34.7 % (37.0-47.0); Hemoglobin 11.4 g/dL (12.0-16.0); Mean Corp Hgb Conc. 32.9 g/dL (33.0-37.0); Mean Corpuscular Volume 90.1 fL (81.0-99.0); Nucleated Red Blood Cells % 0 %; Platelet Count 257 10^3/uL (130-400); Red Cell Dist. Width 14.3 % (11.5-14.5)
[2025-04-11 10:03] LABS: Blood Urea Nitrogen 21 mg/dl (7-17); Calcium 8.9 mg/dl (8.4-10.2); Carbon Dioxide 26 mmol/L (22-30); Chloride 108 mmol/L (98-107); Estimated Creatinine Clearance 54 ml/min; Glucose 131 mg/dl (70-99); Potassium 4.0 mmol/L (3.5-5.1); Sodium 139 mmol/L (135-145); eGFR > 60.00
[2025-04-11] MEDS: LIDOCAINE 4% PATCH 1 PATCH TOPICAL (10:42)
[2025-04-11] MEDS: TESSALON PERLES 200 MG PO ×3 (10:42→20:35)
--- NOTE | 2025-04-11 13:13 | W.PN.HOSP.TC ---
Today's Communication/Plan
-
Monitor vital signs see plan
Still with wheezing and cough
Continue with Decadron, nebs
Low threshold to start antibiotic if do not improve
wean o2 as tolerated
Assessment / Plan
Assessment / Plan
84 yo F with PMH significant for hypertension and dementia who presented to ED complaining of cough and SOB.
History was obtained from discussion with ED staff / review of record. Patient brought to ED for evaluation of cough and SOB. Daughter stated that cough present x months - but much worse over the past few days. On DOA, the patient had severe
paroxysms of cough and appeared short of breath and was brought to the ED for further evaluation. Patient was resting comfortably at the time of exam. She is pleasantly demented and unable to contribute overmuch to this history.
A/P:
Acute Bronchitis likely 2/2 acute viral URI
Acute hypoxic respiratory insufficiency likely secondary to above, wean oxygen as tolerated
COVID/Flu negative
Chest x-ray now with mild increase in subpleural opacity in the basilar lower lobes. Likely secondary to atelectasis. Pro-Jorge negative. Monitor off antibiotic
Has profound wheezing on exam, switched prednisone to Decadron. dec decadron, Added standing albuterol. Added Pulmicort.
speech eval; ok for regular
Observe off of abx for now
High WBC rise likely from steroids
cw Mucinex,tessalon pearls
Follow for clinical improvement
Benign Hypertension, Stable.
Continue metoprolol.
GERD
Senile Dementia - Chronic
Depression - Stable. Continue outpatient med regimen without changes.
Monitor vital status on steroids
DVT Prophylaxis: Lovenox SQ
Code Status: Full
General: Well Developed, Well Nourished, No Apparent Distress, Comfortable and Conversant
HEENT: Normocephalic, Atraumatic, Moist Mucous Membranes, Nose Appears Normal and Ears Appear Normal
Respiratory:+wheezing
Cardiac: Regular Rhythm and S1/S2
GI: Soft, Nontender and Nondistended
Musculoskeletal: no edema
Neuro: Awake and Alert
Psych: Calm
I spent a total of 52 minutes with the patient or on the floor. More than 50% of this time involved counseling and coordination of care.
Anticipated Discharge: 24 - 48 hours
Subjective/Interval History
-
Date of Service: April 11, 2025
denies pain
Objective Data
-
Labs:
Laboratory Results
04/11/25
08:26
WBC 11.4 H
Hgb 11.4 L
Hct 34.7 L
Plt Count 257
Sodium 139
Potassium 4.0
Chloride 108 H
Carbon Dioxide 26
BUN 21 H
Creatinine 0.7
Glucose 131 H
Calcium 8.9
Vital Signs:
Vital Signs
Temp Pulse Resp BP Pulse Ox
98 F 72 18 145/71 94
04/11/25 07:53 04/11/25 11:09 04/11/25 11:09 04/11/25 08:59 04/11/25 08:54
I&O
04/10/25 04/11/25 04/12/25
06:59 06:59 06:59
Intake Total 900 / 900 480 / 480
Output Total 150 / 150
Balance 750 / 750 480 / 480
[2025-04-11 13:46] VITALS: BP 142/65; PULSE 73; O2SAT 95
[2025-04-11 14:15] VITALS: BP 148/68; PULSE 75; O2SAT 93
--- NOTE | 2025-04-11 14:59 | CM ---
Reviewed chart. Introduced myself to patient this morning,she was sitting in the chair with O2 via n/c. now she is on room air. Applied for insurance authorization with [facility] for start date of tomorrow. Will await response.
Spoke with dtrosette Cisse and updated her on the auth progress and reviewed the IMM. She will sign the form when she comes in tonight and will be given a blank copy. CM relayed this process with nurse Raeann Chou.
Plan: DC to [place] when stable. Awaiting auth response
[2025-04-11 15:56] VITALS: BP 132/72
--- NOTE | 2025-04-11 16:12 | PTCARENOTE ---
Pt AAO, oriented to self/place; confused/forgetful; cooperative. WEBB; OOB to chair/BSC with assist x1/walker, no c/o weakness/dizziness.Currently on room air- pulse ox 98%, no c/o SOB, pt has frequent harsh,non-productive cough. Abd large, soft,
fidel PO well. Voids on BSC without difficulty. resting in chair at present, no c/o. Will continue to monitor.
[2025-04-11] MEDS: LOVENOX 40 MG SC (17:30)
[2025-04-11] MEDS: ARICEPT 5 MG PO (20:35)
[2025-04-11 23:43] VITALS: BP 153/73
[2025-04-12] MEDS: DECADRON 2 MG IV ×3 (05:25→21:34)
[2025-04-12 07:25] VITALS: BP 156/77
[2025-04-12] MEDS: MUCINEX 1200 MG PO ×2 (08:17→19:55)
[2025-04-12] MEDS: TOPROL XL 25 MG PO (08:18)
[2025-04-12] MEDS: LIDOCAINE 4% PATCH 1 PATCH TOPICAL (08:18)
[2025-04-12] MEDS: PROTONIX 40 MG PO (08:18)
[2025-04-12] MEDS: TESSALON PERLES 200 MG PO ×3 (08:18→21:34)
[2025-04-12] MEDS: LIPITOR 20 MG PO (08:18)
[2025-04-12] MEDS: ZOLOFT 50 MG PO (08:18)
[2025-04-12] MEDS: ASPIR LOW (ENTERIC COATED) 81 MG PO (08:18)
[2025-04-12] MEDS: NAMENDA 10 MG PO ×2 (08:18→19:56)
[2025-04-12 08:28] LABS: Hematocrit 34.5 % (37.0-47.0); Hemoglobin 11.4 g/dL (12.0-16.0); Mean Corp Hgb Conc. 33.0 g/dL (33.0-37.0); Mean Corpuscular Volume 89.8 fL (81.0-99.0); Nucleated Red Blood Cells % 0 %; Platelet Count 247 10^3/uL (130-400); Red Cell Dist. Width 14.1 % (11.5-14.5)
[2025-04-12] MEDS: PULMICORT 0.5 MG INH ×2 (08:32→19:39)
[2025-04-12] MEDS: VENTOLIN NEBULES 2.5 MG INH ×4 (08:33→19:39)
[2025-04-12 08:50] LABS: Blood Urea Nitrogen 23 mg/dl (7-17); Calcium 8.9 mg/dl (8.4-10.2); Carbon Dioxide 25 mmol/L (22-30); Chloride 108 mmol/L (98-107); Estimated Creatinine Clearance 54 ml/min; Glucose 123 mg/dl (70-99); Potassium 4.3 mmol/L (3.5-5.1); Sodium 139 mmol/L (135-145); eGFR > 60.00
--- NOTE | 2025-04-12 10:05 | CM ---
Weaned O2 to room air-98%. Remains on IV steroids. Possible D/C to [facility]; bed is available
Plan: D/C to [place] when stable
Received auth from [facility]
Auth number: [id number]
Start date 04/12/25
Review date 04/14/25

Case# [id number]
Dr. Nathalia Guerrero
--- NOTE | 2025-04-12 10:53 | W.PN.HOSP.TC ---
Addendum entered and electronically signed by Sergo Joyce MD 04/12/25 12:24:
Start azithromycin
Original Note:
Today's Communication/Plan
-
Monitor vitals
See plan
Still with extensive rhonchi, wheezing. Continue with IV steroids today. Low threshold for antibiotic if do not improve
Continue with Pulmicort, nebs
Continue with cough medications
Possible discharge tomorrow to rehab if continues to improve
Called daughter, could not leave voicemail
Assessment / Plan
Assessment / Plan
84 yo F with PMH significant for hypertension and dementia who presented to ED complaining of cough and SOB.
History was obtained from discussion with ED staff / review of record. Patient brought to ED for evaluation of cough and SOB. Daughter stated that cough present x months - but much worse over the past few days. On DOA, the patient had severe
paroxysms of cough and appeared short of breath and was brought to the ED for further evaluation. Patient was resting comfortably at the time of exam. She is pleasantly demented and unable to contribute overmuch to this history.
A/P:
Acute Bronchitis likely 2/2 acute viral URI
Acute hypoxic respiratory insufficiency likely secondary to above, wean oxygen as tolerated
COVID/Flu negative
Chest x-ray now with mild increase in subpleural opacity in the basilar lower lobes. Likely secondary to atelectasis. Pro-Jorge negative. Monitor off antibiotic
Has profound wheezing on exam, switched prednisone to Decadron. dec decadron, Added standing albuterol. Added Pulmicort. still wheezing, cw decadron
speech eval; ok for regular
Observe off of abx for now
High WBC rise likely from steroids
cw Mucinex,tessalon pearls
Follow for clinical improvement
Benign Hypertension, Stable.
Continue metoprolol.
GERD
Senile Dementia - Chronic
Depression - Stable. Continue outpatient med regimen without changes.
Monitor vital status on steroids
DVT Prophylaxis: Lovenox SQ
Code Status: Full
General: Well Developed, Well Nourished, No Apparent Distress, Comfortable and Conversant
HEENT: Normocephalic, Atraumatic, Moist Mucous Membranes, Nose Appears Normal and Ears Appear Normal
Respiratory:+wheezing
Cardiac: Regular Rhythm and S1/S2
GI: Soft, Nontender and Nondistended
Musculoskeletal: no edema
Neuro: Awake and Alert
Psych: Calm
Anticipated Discharge: Within 24 hours
Subjective/Interval History
-
Date of Service: April 12, 2025
denies pain
Objective Data
-
Labs:
Laboratory Results
04/12/25
07:17
WBC 9.7
Hgb 11.4 L
Hct 34.5 L
Plt Count 247
Sodium 139
Potassium 4.3
Chloride 108 H
Carbon Dioxide 25
BUN 23 H
Creatinine 0.7
Glucose 123 H
Calcium 8.9
Vital Signs:
Vital Signs
Temp Pulse Resp BP Pulse Ox
97.6 F 74 16 156/77 98
04/12/25 07:25 04/12/25 08:33 04/12/25 08:33 04/12/25 08:18 04/12/25 08:33
I&O
04/11/25 04/12/25 04/13/25
06:59 06:59 06:59
Intake Total 480 / 480 1500 / 1500
Balance 480 / 480 1500 / 1500
[2025-04-12] MEDS: ZITHROMAX 500 MG PO (12:41)
--- NOTE | 2025-04-12 15:05 | CM ---
Discharge is cx today. Pt placed on new IV ABX. [place] LiaisonCarole, made aware of delay. Will need to contact [facility] tomorrow to either update the current auth or place a new one.
Plan: D/C to [place] when stable
Received auth from [facility]
Auth number: [id number]
Start date 04/12/25
Review date 04/14/25

Case# [id number]
Dr. Nathalia Guerrero
[2025-04-12 15:06] VITALS: BP 125/59
[2025-04-12 15:51] VITALS: BP 127/59
[2025-04-12] MEDS: LOVENOX 40 MG SC (17:54)
[2025-04-12] MEDS: MELATONIN 3 MG PO (21:35)
[2025-04-12] MEDS: ARICEPT 5 MG PO (21:46)
[2025-04-12 23:05] VITALS: BP 119/73
[2025-04-13 06:00] VITALS: BMI 27.0
[2025-04-13] MEDS: DECADRON 2 MG IV ×3 (06:12→21:23)
[2025-04-13] MEDS: PULMICORT 0.5 MG INH ×2 (06:45→17:45)
[2025-04-13] MEDS: VENTOLIN NEBULES 2.5 MG INH ×4 (06:46→17:45)
[2025-04-13 07:55] VITALS: BP 135/73
[2025-04-13 08:26] LABS: Hematocrit 35.2 % (37.0-47.0); Hemoglobin 11.3 g/dL (12.0-16.0); Mean Corp Hgb Conc. 32.1 g/dL (33.0-37.0); Mean Corpuscular Volume 89.1 fL (81.0-99.0); Nucleated Red Blood Cells % 0 %; Platelet Count 272 10^3/uL (130-400); Red Cell Dist. Width 14.3 % (11.5-14.5)
[2025-04-13 08:52] LABS: Blood Urea Nitrogen 28 mg/dl (7-17); Calcium 8.9 mg/dl (8.4-10.2); Carbon Dioxide 26 mmol/L (22-30); Chloride 105 mmol/L (98-107); Estimated Creatinine Clearance 55 ml/min; Glucose 106 mg/dl (70-99); Potassium 4.3 mmol/L (3.5-5.1); Sodium 138 mmol/L (135-145); eGFR > 60.00
[2025-04-13] MEDS: PROTONIX 40 MG PO (09:23)
[2025-04-13] MEDS: NAMENDA 10 MG PO ×2 (09:23→19:43)
[2025-04-13] MEDS: ASPIR LOW (ENTERIC COATED) 81 MG PO (09:23)
[2025-04-13] MEDS: MUCINEX 1200 MG PO ×2 (09:23→19:43)
[2025-04-13] MEDS: ZITHROMAX 500 MG PO (09:23)
[2025-04-13] MEDS: ZOLOFT 50 MG PO (09:24)
[2025-04-13] MEDS: LIPITOR 20 MG PO (09:24)
[2025-04-13] MEDS: LIDOCAINE 4% PATCH 1 PATCH TOPICAL (09:24)
[2025-04-13] MEDS: TESSALON PERLES 200 MG PO ×3 (09:24→21:23)
[2025-04-13] MEDS: TOPROL XL 25 MG PO (09:24)
--- NOTE | 2025-04-13 11:10 | CM ---
Reviewed chart. Dr. Escalera stated the pt won't be ready for D/C for another day or 2. Dtr Tanna updated on D/C plan. Left message with [facility] to see if a transfer would be possible over the weekend. Pt will need ambulance transport
Plan: DC to [facility] when stable.
--- NOTE | 2025-04-13 13:19 | W.PN.HOSP.TC ---
Today's Communication/Plan
-
cont steroids
CT chest
bolus for contrast
Assessment / Plan
Assessment / Plan
84yo F with PMHx of HLD, dementia came with 1 week of progressive wheezing, managed for bronchitis
A/P:
#COPD exacerbation 2/2 most likely acute bronchitis with acute respiratory insufficiency on admission
COVID-19 and Influenza PCR neg
Bronchodilators and taper steroids
Due to persistent wheezing after 72h of appropriate therapy - CT chest
#HLD
#Essential HTN
#Dementia, unspecified
#GERD
#Anxiety/Depression d/o
cont home meds
DVT ppx on lovenox
Full code
I have spent at least 58min reviewing chart, test results and providing direct patient care
Anticipated Discharge: > 48 hours
Subjective/Interval History
-
Date of Service: April 13, 2025
Objective Data
-
Labs:
Laboratory Results
04/13/25
07:04
WBC 13.9 H
Hgb 11.3 L
Hct 35.2 L
Plt Count 272
Sodium 138
Potassium 4.3
Chloride 105
Carbon Dioxide 26
BUN 28 H
Creatinine 0.7
Glucose 106 H
Calcium 8.9
Vital Signs:
Vital Signs
Temp Pulse Resp BP Pulse Ox
97.6 F 81 18 135/73 92
04/13/25 07:55 04/13/25 09:24 04/13/25 07:55 04/13/25 09:24 04/13/25 09:16
I&O
04/12/25 04/13/25 04/14/25
06:59 06:59 06:59
Intake Total 1500 / 1500
Balance 1500 / 1500
Review of Systems
-
History Source: Patient
All other systems: Reviewed and negative
Physical Exam
-
General: No Apparent Distress
HEENT: Normocephalic
Respiratory: Wheezes
GI: Soft, Nontender and Nondistended
Musculoskeletal: No Edema
Skin: Warm
Neuro: Awake, Alert, Oriented and AO x 3
Psych: Calm
[2025-04-13] MEDS: NSS 500 IV (13:50)
--- NOTE | 2025-04-13 16:21 | PTCARENOTE ---
Pt AAO x1- oriented to self/'hospital ' only; pleasant and cooperative; poor short-term memory. WEBB; OOB to chair/transfer to stretcher with assist x 1-2/walker, unsteady w/OOB activity. VSS. On room air- pulse ox 95%, pt denies SOB; has occ
harsh, non-productive cough. Abd large, soft, fidel PO. Pt incont urine/uses BSC w/assist @ times. IV NSS@ 100 ml/hr infusing via Lt forearm site without sx of infiltration. No c/o at present. Will continue to monitor.
[2025-04-13] MEDS: LOVENOX 40 MG SC (18:02)
[2025-04-13] MEDS: TYLENOL 650 MG PO (18:05)
[2025-04-13] MEDS: ARICEPT 5 MG PO (21:22)
[2025-04-13] MEDS: FLUSH (NSS) 1 FLUSH IV (21:25)
[2025-04-13 23:49] VITALS: BP 133/62
[2025-04-14] MEDS: DECADRON 2 MG IV ×2 (05:16→18:34)
[2025-04-14 06:00] VITALS: BMI 27.7
[2025-04-14 07:30] VITALS: BP 126/78
[2025-04-14] MEDS: PROTONIX 40 MG PO (08:11)
[2025-04-14] MEDS: MUCINEX 1200 MG PO ×2 (08:11→19:43)
[2025-04-14] MEDS: LIPITOR 20 MG PO (08:11)
[2025-04-14] MEDS: NAMENDA 10 MG PO ×2 (08:11→19:43)
[2025-04-14] MEDS: ASPIR LOW (ENTERIC COATED) 81 MG PO (08:11)
[2025-04-14] MEDS: TESSALON PERLES 200 MG PO ×3 (08:12→21:01)
[2025-04-14] MEDS: LIDOCAINE 4% PATCH 1 PATCH TOPICAL (08:12)
[2025-04-14] MEDS: ZITHROMAX 500 MG PO (08:12)
[2025-04-14] MEDS: TOPROL XL 25 MG PO (08:12)
[2025-04-14] MEDS: ZOLOFT 50 MG PO (08:12)
[2025-04-14] MEDS: FLUSH (NSS) 1 FLUSH IV (08:13)
[2025-04-14] MEDS: VENTOLIN NEBULES 2.5 MG INH ×4 (08:16→20:06)
[2025-04-14] MEDS: PULMICORT 0.5 MG INH ×2 (08:16→20:06)
[2025-04-14] MEDS: TYLENOL 650 MG PO ×2 (08:17→12:39)
--- NOTE | 2025-04-14 10:35 | W.PN.HOSP.TC ---
Today's Communication/Plan
-
doing better, decrease steroids frequency
Assessment / Plan
Assessment / Plan
84yo F with PMHx of HLD, dementia came with 1 week of progressive wheezing, managed for bronchitis
A/P:
#COPD exacerbation 2/2 most likely acute bronchitis with acute respiratory insufficiency on admission
COVID-19 and Influenza PCR neg
Bronchodilators and taper steroids
CT chest without acute findings
#Ambulatory deficiency
PT/OT recommended STR
#HLD
#Essential HTN
#Dementia, unspecified
#GERD
#Anxiety/Depression d/o
cont home meds
DVT ppx on lovenox
Full code
I have spent at least 36min reviewing chart, test results and providing direct patient care
Anticipated Discharge: Within 24 hours
Subjective/Interval History
-
Date of Service: April 14, 2025
Objective Data
-
Vital Signs:
Vital Signs
Temp Pulse Resp BP Pulse Ox
97.6 F 72 18 126/78 92
04/14/25 07:30 04/14/25 08:17 04/14/25 08:17 04/14/25 08:12 04/14/25 08:17
I&O
04/13/25 04/14/25 04/15/25
06:59 06:59 06:59
Intake Total 1759
Balance 1759
Review of Systems
-
History Source: Patient
All other systems: Reviewed and negative
Physical Exam
-
General: Comfortable
HEENT: Normocephalic
Respiratory: Wheezes and Rales
GI: Soft, Nontender and Nondistended
Musculoskeletal: No Clubbing, No Cyanosis and No Edema
Neuro: Awake, Alert, Oriented and AO x 3
Psych: Calm
[2025-04-14 15:26] VITALS: BP 120/64
[2025-04-14] MEDS: FLUSH (NSS) 2 FLUSH IV (18:35)
[2025-04-14] MEDS: LOVENOX 40 MG SC (18:35)
[2025-04-14] MEDS: REMOVE LIDOCAINE PATCH 1 PATCH REMOVE (20:58)
[2025-04-14] MEDS: ARICEPT 5 MG PO (21:01)
[2025-04-14 23:15] VITALS: BP 124/60
[2025-04-15] MEDS: DECADRON 2 MG IV (05:01)
[2025-04-15 05:10] VITALS: BMI 26.1
[2025-04-15 08:00] VITALS: BP 152/83
[2025-04-15] MEDS: VENTOLIN NEBULES 2.5 MG INH ×4 (08:08→19:53)
[2025-04-15] MEDS: PULMICORT 0.5 MG INH ×2 (08:08→19:53)
[2025-04-15] MEDS: TESSALON PERLES 200 MG PO ×3 (10:19→21:12)
[2025-04-15] MEDS: NAMENDA 10 MG PO ×2 (10:19→19:44)
[2025-04-15] MEDS: PROTONIX 40 MG PO (10:19)
[2025-04-15] MEDS: MUCINEX 1200 MG PO ×2 (10:19→19:44)
[2025-04-15] MEDS: LIPITOR 20 MG PO (10:19)
[2025-04-15] MEDS: TOPROL XL 25 MG PO (10:19)
[2025-04-15] MEDS: LIDOCAINE 4% PATCH 1 PATCH TOPICAL (10:19)
[2025-04-15] MEDS: FLUSH (NSS) 1 FLUSH IV (10:20)
[2025-04-15] MEDS: ZOLOFT 50 MG PO (10:20)
[2025-04-15] MEDS: ZITHROMAX 500 MG PO (10:20)
[2025-04-15] MEDS: TYLENOL 650 MG PO (10:26)
[2025-04-15] MEDS: ASPIR LOW (ENTERIC COATED) 81 MG PO (12:42)
--- NOTE | 2025-04-15 13:21 | W.PN.HOSP.TC ---
Today's Communication/Plan
-
medcially stable for STR - CM informed and is working on placement
Assessment / Plan
Assessment / Plan
84yo F with PMHx of HLD, dementia came with 1 week of progressive wheezing, managed for bronchitis, improved, remained on RA saturating >90%. Switched to Prednisone for titration. PT/OT recommended STR - CM working on it
A/P:
#COPD exacerbation 2/2 most likely acute bronchitis with acute respiratory insufficiency on admission
COVID-19 and Influenza PCR neg
Bronchodilators and taper steroids
CT chest without acute findings
#Ambulatory deficiency
PT/OT recommended STR
#HLD
#Essential HTN
#Dementia, unspecified
#GERD
#Anxiety/Depression d/o
cont home meds
DVT ppx on lovenox
Full code
I have spent at least 36min reviewing chart, test results and providing direct patient care
Anticipated Discharge: Within 24 hours
Subjective/Interval History
-
Date of Service: April 15, 2025
Objective Data
-
Vital Signs:
Vital Signs
Temp Pulse Resp BP Pulse Ox
97.9 F 78 16 112/64 95
04/15/25 08:00 04/15/25 12:02 04/15/25 12:02 04/15/25 10:19 04/15/25 12:02
I&O
04/14/25 04/15/25 04/16/25
06:59 06:59 06:59
Intake Total 1759 840 / 840
Balance 1759 840 / 840
Review of Systems
-
History Source: Patient
All other systems: Reviewed and negative
Physical Exam
-
General: No Apparent Distress
HEENT: Normocephalic
Respiratory: Rales
GI: Soft, Nontender and Nondistended
Neuro: Awake, Alert, Oriented and AO x 3
Psych: Calm
[2025-04-15 14:13] VITALS: BP 91/63; PULSE 84; O2SAT 95
[2025-04-15 14:56] VITALS: BP 91/6; PULSE 86; O2SAT 95
[2025-04-15 15:30] VITALS: BP 115/67
[2025-04-15] MEDS: LOVENOX 40 MG SC (17:59)
[2025-04-15] MEDS: REMOVE LIDOCAINE PATCH 1 PATCH REMOVE (19:45)
[2025-04-15] MEDS: ARICEPT 5 MG PO (21:12)
[2025-04-15 23:20] VITALS: BP 127/63
[2025-04-16 07:15] VITALS: BP 137/68
[2025-04-16] MEDS: VENTOLIN NEBULES 2.5 MG INH ×3 (07:18→15:24)
[2025-04-16] MEDS: PULMICORT 0.5 MG INH (07:18)
[2025-04-16] MEDS: ASPIR LOW (ENTERIC COATED) 81 MG PO (07:47)
[2025-04-16] MEDS: TOPROL XL 25 MG PO (07:47)
[2025-04-16] MEDS: NAMENDA 10 MG PO (07:47)
[2025-04-16] MEDS: MUCINEX 1200 MG PO (07:47)
[2025-04-16] MEDS: TESSALON PERLES 200 MG PO ×2 (07:47→15:54)
[2025-04-16] MEDS: ZITHROMAX 500 MG PO (07:47)
[2025-04-16] MEDS: DELTASONE 40 MG PO (07:47)
[2025-04-16] MEDS: ZOLOFT 50 MG PO (07:47)
[2025-04-16] MEDS: PROTONIX 40 MG PO (07:47)
[2025-04-16] MEDS: LIPITOR 20 MG PO (07:48)
[2025-04-16] MEDS: LIDOCAINE 4% PATCH 1 PATCH TOPICAL (07:48)
--- NOTE | 2025-04-16 09:29 | W.PN.HOSP.TC ---
Addendum entered and electronically signed by Deyvi Leon MD 04/16/25 11:51:
Dont use billing under this PN, use discharge summary billing instead
Original Note:
Today's Communication/Plan
-
medcially stable for DC pending rehab. CM aware
Assessment / Plan
Assessment / Plan
84yo F with PMHx of HLD, dementia came with 1 week of progressive wheezing, managed for bronchitis, improved, remained on RA saturating >90%. Switched to Prednisone for titration. PT/OT recommended STR - CM working on it
A/P:
#COPD exacerbation 2/2 most likely acute bronchitis with acute respiratory insufficiency on admission
COVID-19 and Influenza PCR neg
Bronchodilators and taper steroids
CT chest without acute findings
#Ambulatory deficiency
PT/OT recommended STR
#HLD
#Essential HTN
#Dementia, unspecified
#GERD
#Anxiety/Depression d/o
cont home meds
DVT ppx on lovenox
Full code
I have spent at least 36min reviewing chart, test results and providing direct patient care
Anticipated Discharge: Within 24 hours
Subjective/Interval History
-
Date of Service: April 16, 2025
Objective Data
-
Vital Signs:
Vital Signs
Temp Pulse Resp BP Pulse Ox
97.6 F 66 16 137/68 95
04/15/25 23:20 04/16/25 07:47 04/16/25 07:22 04/16/25 07:47 04/16/25 09:13
I&O
04/15/25 04/16/25 04/17/25
06:59 06:59 06:59
Intake Total 840 / 840 720 / 720
Balance 840 / 840 720 / 720
Review of Systems
-
History Source: Patient
All other systems: Reviewed and negative
Physical Exam
-
General: No Apparent Distress
HEENT: Normocephalic
Respiratory: Rales
Cardiac: Regular Rhythm
GI: Soft
Musculoskeletal: No Clubbing, No Cyanosis and No Edema
Neuro: Awake, Alert, Oriented and AO x 3
Psych: Calm
--- NOTE | 2025-04-16 11:50 | W.DCSUMMARY ---
Addendum entered and electronically signed by Deyvi Leon MD 04/16/25 11:55:
#Subcentimeter lung nodules
Dedicated CT chest in 12 months as per radiologist recommendations - added to D/C instrcutions
Original Note:
Discharge Summary
Discharge Data
Date of Admission: 04/10/25
Date of Discharge: 04/16/25
-
Pending Results: No
Hospital Course
84yo F with PMHx of HLD, dementia came with 1 week of progressive wheezing, managed for bronchitis, improved, remained on RA saturating >90%. Switched to Prednisone for titration. PT/OT recommended STR. I have spent at least 36min reviewing chart,
test results and providing direct patient care
Patient was managed for:
#COPD exacerbation 2/2 most likely acute bronchitis with acute respiratory insufficiency on admission
#Ambulatory deficiency
#HLD
#Essential HTN
#Dementia, unspecified
#GERD
#Anxiety/Depression d/o
Discharge Plan
-
Patient Disposition: [facility]NF
Discharge Diagnosis/Procedures: Severe acute bronchitis
Acute hypoxic respiratory insufficiency
Condition: Fair
Diet: Low Cholesterol
Activity: As tolerated
Driving Restrictions: As prior to admission
Bathing Restrictions: None
Referrals:
Ector Carney MD [Family Provider, Internal Medicine] - in less than 1 week
Prescriptions:
New
budesonide 0.5 mg/2 mL Suspension For Nebulization
0.5 mg inhalation R BID Qty: 0 0RF
budesonide-formoterol [Symbicort] 160-4.5 mcg/actuation HFA aerosol inhaler
2 puff inhalation Q12H Qty: 10.2 0RF
albuterol sulfate [Ventolin HFA] 90 mcg/actuation HFA aerosol inhaler
2 puff inhalation Q6H PRN (Reason: shortness of breath or wheezing) Qty: 8.5 0RF
prednisone 10 mg Tablet
See Rx Instructions .ROUTE .COMPLEX Qty: 30 0RF
Rx Instructions:
Take By Mouth:
40 mg daily x3 days, 30 mg daily x3 days,
20 mg daily x3 days, 10 mg daily x3 days.
Continued
atorvastatin 20 mg Tablet
20 mg PO DAILY
donepezil 5 mg Tablet
5 mg PO HS
metoprolol succinate 25 mg Tablet Extended Release 24 Hr
25 mg PO DAILY
sertraline 50 mg Tablet
50 mg PO DAILY
memantine 10 mg Tablet
10 mg PO BID
aspirin 81 mg Capsule
81 mg PO DAILY
Changed
pantoprazole 20 mg Tablet,Delayed Release (Dr/Ec)
40 mg PO DAILY Qty: 0 0RF
Discharge Orders:
Discharge Patient (As Directed); Ordered 04/16/25
Ordered By: Deyvi Leon
Discharge Date and Time
Print Language: CYMRAES
--- NOTE | 2025-04-16 11:56 | CM ---
Pt IS discharged today via ambulance. Dtr notified of transport time of 5:00 pm. The Dtr will be at [facility] by 6-6:15; Annette Bates at [facility] made aware
[facility].
Report: [phone]
[2025-04-16] MEDS: FLUZONE HIGH-DOSE 2025-26 0.5 ML IM (12:37)
[2025-04-16 15:30] VITALS: BP 115/57
== END 2025-04-16 17:57 | DRG 202 ==
LOC: 4 EAST ACU 08:43
PROVIDERS: Internal Medicine; ADMITTING PHYSICIAN Hospitalist; ATTENDING PHYSICIAN Internal Medicine; EMERGENCY PHYSICIAN Student in an Organized Health Care Education/Training Program; FAMILY PHYSICIAN Internal Medicine
PROC: 3E02340 Introduction of Influenza Vaccine into Muscle, Percutaneous Approach (ICD-10-PCS; 2025-04-16)
DX: J20.9 Acute bronchitis, unspecified (principal); F03.93 Unspecified dementia, unspecified severity, with mood disturbance; F03.94 Unspecified dementia, unspecified severity, with anxiety; J44.1 Chronic obstructive pulmonary disease with (acute) exacerbation; J06.9 Acute upper respiratory infection, unspecified; Z11.52 Encounter for screening for COVID-19; I10 Essential (primary) hypertension; R09.02 Hypoxemia; R06.89 Other abnormalities of breathing; K21.9 Gastro-esophageal reflux disease without esophagitis; E78.5 Hyperlipidemia, unspecified; Z23 Encounter for immunization; F32.A Depression, unspecified; Z79.899 Other long term (current) drug therapy
CPT/HCPCS: 71045; 71046; 71260; 74230; 80048; 80053; 81003; 81015; 83605; 83735; 83880; 84145; 85025; 85027; 87040; 87070; 87205; 87502; 87811; 90662; 92611; 93005; 94640; 94667; 94668; 96374; 97116; 97162; 97166; 97530; 97535; 99285; G0008; Q9967